=== PATIENT | female | born 1960 | race Two or more races ===

== ENCOUNTER 2023-06-07 10:11 | Emergency (ER) | payer OTHER ==
[~2023-06-07] VITALS: Ht 160 cm; Wt 58.5 kg
[~2023-06-07 10:11] MED LIST: CELECOXIB200 MG PO; CLONAZEPAM2 MG PO; METAXALONE800 MG PO
[2023-06-07] MEDS ORDERED: CYMBALTA60 MG PO (10:46)
[2023-06-07] MEDS ORDERED: OXYTROL FOR WO1 EACH TD (10:47)
== END 2023-06-07 16:11 | disposition home or self-care (01) ==
LOC: ER 10:12
DX: R11.0 Nausea (principal); K59.00 Constipation, unspecified; M54.9 Dorsalgia, unspecified; Z20.822 Contact with and (suspected) exposure to COVID-19
CPT/HCPCS: 96372; 99284; J2765

== ENCOUNTER 2025-04-09 11:19 | Outpatient (CLI) | payer OTHER ==
[~2025-04-09 11:19] MED LIST changes: +CYMBALTA60 MG PO; +OXYTROL FOR WO1 EACH TD
== END 2025-04-09 11:20 | disposition home or self-care (01) ==
LOC: RAD 11:19
PROVIDERS: ATTEND Surgery
DX: K62.3 Rectal prolapse (principal); N39.46 Mixed incontinence; K59.09 Other constipation